=== PATIENT | female | born 1985 | race Caucasian/White ===

== ENCOUNTER 2023-11-10 11:17 | Emergency (ER) | payer OTHER, SELFPAY ==
[2023-11-10 11:21] VITALS: BP 99/64
--- NOTE | 2023-11-10 12:11 | ED.GENMED ---
History of Present Illness
General
Chief Complaint: Dizziness
Source: patient and spouse
Exam Limitations: none
Time Seen by Provider: 11/10/23 11:35
Nursing documentation reviewed up to this point in time: agreed with
Travel History
Have you had any contact with someone who has COVID-19?: No
Do you have any symptoms of coronavirus? Fever > 100 degrees, chills, cough, shortness of breath, sore throat, loss of taste or smell, muscle aches, or headache?: No
History of Present Illness
History of Present Illness:
Patient is a 38-year-old female with history of interstitial cystitis and hypertrophic cardiomyopathy contrite on today to make sure it is appropriately low she already reports other people's who presents to the ER for evaluation. Patient reports
she just completed Bactrim yesterday for UTI and was fine yesterday throughout the day but last night started to feel very nauseous. She vomited at 1 AM and then again at 9 AM. She feels very nauseous. She has not been drinking water due to
nausea. She complains of racing heart rate worse with standing in the 100s. Despite having a history of hypertrophic cardiomyopathy she has had palpitations with that however has never had racing heart rate or elevated heart rate as she does now.
Regarding patient's cardiomyopathy she is not treated she is simply monitored by Dr. Orellana. Regarding interstitial cystitis patient has seen Dr. Alcazar in the past. She does however have at times chronic discomfort in her urethra.
Past History
Past History
ED Past Medical History: Psychiatric (Anxiety, ADD) and Other (Hypertrophic cardiomyopathy; frequent UTis, possible interstitial cystitis)
ED Past Surgical History: None
Social History
Tobacco: Former smoker
Alcohol: Occasional
Drug: None
Personal:
Living: with family
Employment: Employed
Family History
Family History: Other (Noncontributory)
Review of Systems
Review of Systems
Allergies reviewed?: Yes
All Other Systems: ROS reviewed and negative except as documented in HPI and ROS
Constitutional: Reports fatigue
EENT: Reports no symptoms
Respiratory: Reports no symptoms
Cardiac: Reports no symptoms
ABD/GI: Reports nausea and vomiting
Musculoskeletal: Reports no symptoms
Skin: Reports no symptoms
Neurological: Reports no symptoms
Hematologic/Lymphatic: Reports no symptoms
Psychiatric: Reports no symptoms
Phy Exam
General Physical Exam
General Presentation: no apparent distress
General age: appears stated age
General Skin: warm and dry
General Habitus: normal
General Mental: alert
General Hydration: dry mucous membranes
Cardiovascular Exam
Cardiovascular Exam: regular rate/rhythm, no murmur and normal peripheral pulses
Pulmonary Exam
Pulmonary Exam: lungs clear and no respiratory distress
Neurological Exam
Neurological Exam: alert and oriented x3
[place] Coma Scale
Eye Opening: Spontaneous
Verbal Response: Oriented
Motor Response: Obeys Commands
GCS Total Score: 15
Musculoskeletal Exam
Musculoskeletal Exam: full ROM
Skin Exam
Skin Exam: normal color and warm/dry
Psychiatric Exam
Psychiatric Exam: normal mood/affect
Course
Orders/Labs/Results
Orders:
Orders
11/10/23 11:25
Electrocardiogram (*1) Urgent
Reason for Study: Vertigo / Dizzy
EKG- Treatment ONCE
11/10/23 12:10
IV Insert/Care/Rem.- Treatment PRN
Orthostatic VS- Treatment ONCE
0.9% Sodium Chloride 1000 ml [Nss] 1,000 ml IV BOLUS
11/10/23 12:28
Ondansetron Injectable [Zofran] 4 mg IV NOW STA
11/10/23 12:42
Complete Blood Count/With Diff Urgent
Comprehensive Metabolic Panel Urgent
11/10/23 13:04
Urinalysis Reflex To Culture Urgent
Date Specimen was Collected: 11/10/23
Time Specimen was Collected: 12:58
Urine Microscopic Reflex Cult Urgent
Urine Culture Urgent
ALBINA Source: U
Specimen Description:
Date Specimen was Collected: 11/10/23
Time Specimen was Collected: 12:58
11/10/23 13:10
Ondansetron Injectable [Zofran] 4 mg IV NOW STA
Abnormal Lab Results
11/10/23 11/10/23
12:42 13:04
Absolute Neuts (auto) 6.6 H 10^3/uL
(1.4-6.5)
Absolute Lymphs (auto) 0.4 L 10^3/uL
(1.2-3.4)
Neutrophils % 90.1 H %
(42.2-75.2)
Lymphocytes % 5.8 L %
(20.5-51.1)
Sodium 132 L mmol/L
(135-145)
Carbon Dioxide 21 L mmol/L
(22-30)
Creatinine 1.2 H mg/dL
(0.6-1.0)
Total Protein 5.8 L g/dl
(6.3-8.2)
Ur Occult Blood Reflex Trace A
(Negative)
Leukocyte Esterase Rfl 2+ A
(Negative)
Urine Albumin (Reflex) 1+ A
(Neg - Trace)
11/10/23 12:42
11/10/23 12:42
Vital Signs
Initial and Last Documented VS:
Initial Vital Signs
Temp Pulse Resp BP Pulse Ox
98.8 F 87 20 99/64 98
11/10/23 11:21 11/10/23 11:21 11/10/23 11:21 11/10/23 11:21 11/10/23 11:21
Last Documented Vital Signs
Temp Pulse Resp BP Pulse Ox
98.8 F 75 20 114/57 99
11/10/23 11:21 11/10/23 15:39 11/10/23 11:21 11/10/23 15:39 11/10/23 15:39
MDM/Problems Addressed
MDM/Problems Addressed:
Patient is a 38-year-old female with history of interstitial cystitis hypertrophic cardiomyopathy history of narcotic dependence presented to the ER for evaluation. She reports she was diagnosed with a UTI and just completed Bactrim yesterday for
UTI. She was also given Percocet by her family doctor in addition to the Bactrim. she complains of discomfort around her urethra but this is her typical symptom she reports with interstitial cystitis. She started with nausea dizziness and vomited
at 1 AM and this morning. Patient presented to the ER awake alert no acute distress however appears obviously dehydrated. Patient was given fluids nausea medicine. Patient was found to be afebrile with a normal white count creatinine 1.2 . Urine
does not appear infected. Patient did have complaints that her heart was racing when she stood up at home likely effect of dehydration. She did have a heart rate increased to 120 with standing when she first arrived. Repeat orthostatics did
improve however I did recommend after the first liter was completed that she get an additional liter of fluids however she was drinking fluids at that time on her own, jo lokesh and wanted to go home. I offered patient Pyridium for discomfort for
but she declined. She does have DR Garcia as her urologist to follow-up with. Did encourage close outpatient follow-up with her as well as family doctor.
*Critical Care Note
Total Time (30-74mins, 75-104mins- exclusive of procedures): Not Applicable
ED Attending Note
-
Portions of this chart may have been created with voice recognition software.� Occasional wrong word or��sound alike� substitutions may have occurred due to the inherent limitations of voice recognition software.
Discharge Plan
Departure
Patient Disposition: Home (Routine Discharge)
Date of Disposition: 11/10/23
Time of Disposition: 15:28
Patient with high blood pressure during this ER visit?: No
Condition: Fair
Covid-19: Not Applicable
Discharge Problem:
Nausea & vomiting, dehydration
Instructions: Dehydration, Adult (DC), Nausea and Vomiting, Adult (DC)
Prescriptions:
New
ondansetron 4 mg tablet,disintegrating
4 mg PO Q8H PRN (Reason: nausea and vomiting) Qty: 10 0RF
No Action
clonazepam 1 MG tablet
1 mg PO QID
melatonin 10 MG tablet
10 mg PO HS
metronidazole 500 MG tablet
500 mg PO TID Qty: 21 0RF
hydromorphone 2 MG tablet
2 mg PO Q6HPRN PRN (Reason: abdominal pain) Qty: 10 0RF
levofloxacin 500 MG tablet
500 mg PO DAILY Qty: 7 0RF
ondansetron 4 MG tablet,disintegrating
4 mg PO TIDPRN PRN (Reason: nausea) Qty: 15 0RF
phenazopyridine [Pyridium] 200 mg tablet
200 mg PO TID PRN (Reason: pain) 2 Days Qty: 6 0RF
cephalexin 500 mg capsule
500 mg PO TID 7 Days Qty: 21 0RF
Referrals:
Gardenia Avalos PA-C [Family Provider] -
Activity Restrictions/Additional Instructions:
Patient to stay well-hydrated and drink a lot of fluids. You may take Zofran as needed for nausea 1 tablet every 8 hours. Follow-up close with your family doctor in next several days as well as your urologist.
Interventions
Interventions:
*Risk Screen - Suicide Last Done: 11/10/23 16:00
*General Assessment Last Done: 11/10/23 16:00
*Neglect/Abuse Screening Last Done: 11/10/23 16:00
ED- Fall Risk Assessment Last Done: 11/10/23 16:00
*ED COVID-19 Vaccine History Last Done: 11/10/23 16:00
*Nursing Disposition Last Done: 11/10/23 16:00
ED- Neurological Assessment Last Done: 11/10/23 12:59
Discharge Date and Time
Discharge Date/Time: 11/10/23 16:23
[2023-11-10 12:24] VITALS: BP 101/58; BP 111/62; BP 115/58; PULSE 120; PULSE 81; PULSE 88
[2023-11-10] MEDS: NSS 1000 IV (12:38)
[2023-11-10] MEDS: ZOFRAN 4 MG IV ×2 (12:38→13:17)
[2023-11-10 12:52] LABS: % Eosinophils 0.3 % (0-6); % Immature Granulocytes 0.1 % (0-0.5); % Lymphocytes 5.8 % (20.5-51.1); % Monocytes 3.7 % (1.7-9.3); % Neutrophils 90.1 % (42.2-75.2); Absolute Lymphocytes 0.4 10^3/uL (1.2-3.4); Absolute Monocytes 0.3 10^3/uL (0.1-0.6); Absolute Neutrophils 6.6 10^3/uL (1.4-6.5); Hematocrit 40.1 % (37.0-47.0); Hemoglobin 14.5 g/dL (12.0-16.0); Mean Corp Hgb Conc. 36.2 g/dL (33.0-37.0); Mean Corpuscular Hgb 29.5 pg (27.0-31.0); Mean Corpuscular Volume 81.7 fL (81.0-99.0); Mean Platelet Volume 9.7 fL (7.4-10.4); Nucleated Red Blood Cells % 0 %; Platelet Count 189 10^3/uL (130-400); Red Blood Cell Count 4.91 10^6/uL (4.20-5.40); White Blood Cell Count 7.4 10^3/uL (4.8-10.8)
[2023-11-10 13:06] LABS: ALT (SGPT) 15 U/L (0-35); AST (SGOT) 20 U/L (14-36); Albumin 3.5 g/dl (3.5-5.0); Alkaline Phosphatase 51 U/L (38-126); Blood Urea Nitrogen 16 mg/dl (7-17); Calcium 8.4 mg/dl (8.4-10.2); Carbon Dioxide 21 mmol/L (22-30); Chloride 106 mmol/L (98-107); Glucose 97 mg/dl (70-99); Potassium 4.2 mmol/L (3.5-5.1); Sodium 132 mmol/L (135-145); Total Bilirubin 0.9 mg/dl (0.2-1.3); Total Protein 5.8 g/dl (6.3-8.2); eGFR 59.05
[2023-11-10 13:15] LABS: Urine Albumin 1+ (Neg - Trace); Urine Bilirubin Negative (Negative); Urine Character Clear (Clear); Urine Color Yellow; Urine Glucose Negative (Negative); Urine Ketone Negative (Negative); Urine Leukocyte 2+ (Negative); Urine Nitrite Negative (Negative); Urine Occult Blood Trace (Negative); Urine Specific Gravity 1.015 (<1.030); Urine Urobilinogen Negative (Neg - 1+)
[2023-11-10 13:25] LABS: Urine Red Blood Cell 0-2 /HPF (0-2); Urine White Cell 0-2 /HPF (0-5)
[2023-11-10 14:36] VITALS: BP 104/59; BP 116/64; BP 97/63; PULSE 102; PULSE 84; PULSE 85
[2023-11-10 15:39] VITALS: BP 114/57
== END 2023-11-10 16:23 | disposition home or self-care (01) ==
LOC: EMR 11:17
PROVIDERS: Nurse Practitioner; EMERGENCY PHYSICIAN Emergency Medicine; FAMILY PHYSICIAN Physician Assistant Medical
DX: R11.2 Nausea with vomiting, unspecified (principal); E86.0 Dehydration; I42.2 Other hypertrophic cardiomyopathy; F41.9 Anxiety disorder, unspecified; F98.8 Other specified behavioral and emotional disorders with onset usually occurring in childhood and adolescence; Z87.440 Personal history of urinary (tract) infections
CPT/HCPCS: 99283; 96374; 96376; 96361; 80053; 81003; 81015; 85025; 87086; 93005

== ENCOUNTER 2023-12-21 06:30 | Day surgery (SDC) | payer OTHER, SELFPAY ==
[2023-12-16 08:29] VITALS: BMI 23.3
[2023-12-16 08:44] LABS: % Basophils 0.2 % (0-2); % Immature Granulocytes 0.2 % (0-0.5); % Monocytes 6.8 % (1.7-9.3); % Neutrophils 59.8 % (42.2-75.2); Absolute Eosinophils 0.1 10^3/uL (0-0.7); Absolute Lymphocytes 1.6 10^3/uL (1.2-3.4); Absolute Monocytes 0.3 10^3/uL (0.1-0.6); Absolute Neutrophils 2.9 10^3/uL (1.4-6.5); Hemoglobin 14.8 g/dL (12.0-16.0); Mean Corp Hgb Conc. 35.2 g/dL (33.0-37.0); Mean Corpuscular Hgb 29.2 pg (27.0-31.0); Mean Platelet Volume 9.7 fL (7.4-10.4); Nucleated Red Blood Cells % 0 %; Platelet Count 260 10^3/uL (130-400); Red Blood Cell Count 5.06 10^6/uL (4.20-5.40); Red Cell Dist. Width 12.3 % (11.5-14.5); White Blood Cell Count 4.9 10^3/uL (4.8-10.8)
[2023-12-16 08:55] LABS: INR 1.02; PT 13.4 Sec (11.4-14.6); Urine Albumin Negative (Neg - Trace); Urine Bilirubin Negative (Negative); Urine Character Clear (Clear); Urine Color Yellow; Urine Glucose Negative (Negative); Urine Ketone Negative (Negative); Urine Leukocyte Negative (Negative); Urine Nitrite Negative (Negative); Urine Occult Blood Negative (Negative); Urine Urobilinogen Negative (Neg - 1+)
[2023-12-16 08:56] LABS: APTT 27.5 Sec (23.4-35.0)
[2023-12-16 10:31] LABS: Blood Urea Nitrogen 26 mg/dl (7-17); Calcium 9.4 mg/dl (8.4-10.2); Carbon Dioxide 25 mmol/L (22-30); Chloride 105 mmol/L (98-107); Estimated Creatinine Clearance 71 ml/min; Glucose 77 mg/dl (70-99); Sodium 136 mmol/L (135-145); eGFR > 60.00
[2023-12-21] VITALS (9 sets, daily range): BP systolic 99–109; BP diastolic 44–77; BMI 23.3
[2023-12-21] MEDS: NORMOSOL-R 1000 IV (10:45)
[2023-12-21] MEDS: Pyridium 200 MG PO (12:18)
[2023-12-21] MEDS: DILAUDID 0.5 MG IV (12:23)
[2023-12-21] MEDS: ROXICODONE 5 MG PO (13:22)
== END 2023-12-21 13:32 | disposition home or self-care (01) ==
LOC: SDS 06:30
PROVIDERS: ATTENDING PHYSICIAN Urology; FAMILY PHYSICIAN Physician Assistant Medical
DX: N30.10 Interstitial cystitis (chronic) without hematuria (principal)
CPT/HCPCS: 52260; 88305; 36415; 80048; 81003; 85025; 85610; 85730

== ENCOUNTER → 2024-07-18 15:17 | Outpatient (REF) | payer OTHER, SELFPAY | LOC: RCS 15:17 | PROVIDERS: ATTENDING PHYSICIAN Physician Assistant Medical | DX: I42.2 Other hypertrophic cardiomyopathy (principal) | CPT/HCPCS: 93306 ==